=== PATIENT | female | born 1935 | race Caucasian/White ===

== ENCOUNTER 2021-06-07 11:22 | Emergency (ER) | payer OTHER ==
[~2021-06-07] VITALS: Ht 170.2 cm; Wt 60.3 kg
--- NOTE | ~2021-06-07 | EMS ---
[address] [address] EMS Patient Care Report Name: DENIS JAMA Room #: PRE RICA M.R.#: [id number] Admission: Attend Phys: Discharge: Date of : [birth year] Report #: [id number] THIS REPORT FOR: //name// Report Transmitted: 06/07/2021 11:53 EMS Care Summary [facility] MED-ACT Incident [phone] @ 06/07/2021 10:27 Incident Location [address] [place] [address] Patient DENIS JAMA Female, 85 Years 1935 Patient Address [address] [place] [address] Patient History Neuropathy, Patient Allergies Latex allergy, Patient Medications Gabapentin, Chief Complaint weakness Disposition Transported No Lights/[place] Dispatch Reason Falls Transported To [facility] Narrative Arrived to find pt lying on the floor alert and oriented. Pt stated she was turning around and had got her legs tangled and fell to the floor from a [facility] [address] [place] [address] EMS Patient Care Report Name: DENIS JAMA Room #: PRE ER M.R.#: [id number] Admission: Attend Phys: Discharge: Date of : [birth year] Report #: [id number] standing position. Pt denied any injury from the fall but stated she has been feeling very weak for the past 24-36 hours. Pt does have neuropathy but is having more difficulty than normal. Pt was lifted to the EMS cot and transported to [facility]. Upon arrival [facility] and care transferred to staff internist office based only with report. Initial Vitals @10:56P: 106,SpO2: 95,AK Suspected: false @11:06P: 105,SpO2: 96, @10:54P: 105,SpO2: 95, @11:09P: 98,R: 18,BP: 128/66,Pain: 0/10,GCS: 15,SpO2: 96,Revised Trauma: 12, @10:43P: 120,R: 18,BP: 136/79,Pain: 0/10,GCS: 15,Temp: 98.1F,Glucose: 161,SpO2: 98,Revised Trauma: 12, Impression Generalized Weakness Procedures @10:56 12-Lead ECG Timeline 10:26,Call Received 10:26,Psap Call 10:27,Dispatched 10:28,En Route 10:33,On Scene 10:37,At Patient 10:43,BP: 136/79 M,PULSE: 120,RR: 18 R,SPO2: 98 Ox,ETCO2: ,B,PAIN: 0,GCS: 15, 10:54,BP: / M,PULSE: 105,RR: R,SPO2: 95 Ox,ETCO2: ,BG: ,PAIN: ,GCS: , 10:56,12-Lead ECG, 10:56,BP: / M,PULSE: 106,RR: R,SPO2: 95 Ox,ETCO2: ,BG: ,PAIN: ,GCS: , 10:57,Depart Scene 11:06,BP: / M,PULSE: 105,RR: R,SPO2: 96 Ox,ETCO2: ,BG: ,PAIN: ,GCS: , 11:07,At Destination 11:09,BP: 128/66 M,PULSE: 98,RR: 18 R,SPO2: 96 Ox,ETCO2: ,BG: ,PAIN: 0,GCS: 15, 11:52,Call Closed Disclaimer [email or web address] Copyright 2020 [employer] This EMS Care Summary contains data elements from the applicable legal record (which may be displayed differently). It is designed to provide pertinent information for the following purposes: continuity of care, clinical quality, and state data reporting. The complete legal record is available to ED staff [address] [address] EMS Patient Care Report Name: DENIS JAMA Room #: PRE ER M.R.#: [id number] Admission: Attend Phys: Discharge: Date of : [birth year] Report #: [id number] and administrators of the receiving hospital in [employer] Patient Tracker. All data is provided "as is."
[2021-06-07 11:57] LABS: ABSOLUTE NEUTROPHILS 12.4 thou/uL (1.4-8.2); BASOPHILS 0.4 % (0.0-2.0); HEMATOCRIT 40.1 % (37.0-47.0); HEMOGLOBIN 13.3 gm/dL (12.0-15.0); MCH 31.2 pg (26.0-34.0); MCHC 33.2 g/dL (28.0-37.0); MCV 93.9 fL (80.0-100.0); PLATELET COUNT 317 thou/uL (150-400); POLYS 78.6 % (36.0-66.0); RBC 4.27 mil/uL (4.20-5.00); RDW 13.5 % (10.5-14.5); WBC 15.8 thou/uL (4.0-11.0)
[2021-06-07 12:15] LABS: CALCIUM 8.6 mg/dL (8.5-10.1); CREATININE 0.8 mg/dL (0.6-1.0); POTASSIUM 4.1 mmol/L (3.5-5.1)
[2021-06-07 12:22] VITALS: BP 134/61
[2021-06-07 12:27] LABS: ALBUMIN 3.9 g/dL (3.4-5.0); TOTAL BILIRUBIN 0.6 mg/dL (0.2-1.0)
--- NOTE | 2021-06-07 13:37 | EKG ---
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
[2021-06-07 13:50] LABS: URINE BILIRUBIN NEGATIVE (Negative); URINE BLOOD 1+ (Negative); URINE COLOR YELLOW; URINE GLUCOSE-RANDOM* NEGATIVE (Negative); URINE KETONES 1+ (Negative); URINE PROTEIN (DIPSTICK) TRACE (Negative); URINE UROBILINOGEN 0.2 E.U./dl (0.2-1.0)
[2021-06-07 13:58] LABS: URINE CLARITY SL HAZY; URINE LEUKOCYTES-REFLEX 1+ (Negative); URINE NITRITE-REFLEX POSITIVE (Negative)
[2021-06-07 14:00] LABS: BACTERIA-REFLEX >30 Many /HPF (None Seen); CASTS None Seen /LPF (None Seen); CRYSTALS None Seen /LPF (None Seen); SQUAMOUS 0-3 Few /LPF (0-3); URINE RBC 1-2 Rare /HPF (NONE SEEN); URINE WBC-REFLEX 6-15 Few /HPF (0-5)
--- NOTE | 2021-06-07 14:49 | 2DMMODE ---
[facility] [place] [address] 2 D/M-MODE ECHOCARDIOGRAM Name: DENIS JAMA Room #: REG M.R.#: [id number] Admission: 06/07/21 Attend Phys: Discharge: Date of : [birth year] Report #: [id number] THIS REPORT FOR: cc: Charity Pennington MD, Deborah M. MD Mancuso, Gerald M. MD [facility] ~ APPROVED REPORT Study performed: 06/07/2021 13:39:18 EXAM: Comprehensive 2D, Doppler, and color-flow Echocardiogram Patient Location: ER Room #: 5 Status: routine BSA: 1.70 HR: 102 bpm BP: 132/71 mmHg Rhythm: Tachycardia Other Information Study Quality: Good Indications Weakness 2D Dimensions RVDd: 29.84 mm IVSd: 6.60 (7-11mm) LVOT Diam: 20.25 (18-24mm) LVDd: 46.58 mm PWd: 7.82 (7-11mm) Ascending Ao: 30.31 (22-36mm) LVDs: 31.69 (25-40mm) Left Atrium: 33.24 (27-40mm) Aortic Root: 32.89 mm IVC: 24.00 mm Volumes Left Atrial Volume (Systole) Single Plane 4CH: 67.72 mL Single Plane 2CH: 41.48 mL LA ESV Index: 35.00 mL/m2 Aortic Valve AoV Peak Jeffy.: 1.70 m/s AO Peak Gr.: 11.63 mmHg LVOT Max P.26 mmHg LVOT Max V: 1.15 m/s VIVIANE Vmax: 2.16 cm2 [facility] [address] [place] [address] 2 D/M-MODE ECHOCARDIOGRAM Name: DENIS JAMA Room #: REG RICA DaianaAllyAbel#: [id number] Admission: 06/07/21 Attend Phys: Discharge: Date of : [birth year] Report #: [id number] Pulmonary Valve PV Peak Jeffy.: 1.18 m/s PV Peak Gr.: 5.56 mmHg Tricuspid Valve TR Peak Jeffy.: 2.64 m/s TR Peak Gr.: 27.83 mmHg PA Pressure: 38.00 mmHg Left Ventricle The left ventricle is normal size. There is normal LV segmental wall motion. There is normal left ventricular wall thickness. The left ventricular systolic function is normal. The left ventricular ejection fraction is within the normal range. LVEF is 55-60%. This study is not technically sufficient to allow evaluation of the LV diastolic function. Right Ventricle The right ventricle is normal size. The right ventricular systolic function is normal. Atria Left atrium is dilated. The right atrium size is normal. Aortic Valve The aortic valve is normal in structure. No aortic regurgitation is present. There is no aortic valvular stenosis. Mitral Valve The mitral valve is normal in structure. Mild mitral regurgitation. No evidence of mitral valve stenosis. Tricuspid Valve The tricuspid valve is normal in structure. There is mild tricuspid regurgitation. Estimated pap 39 mmHg. There is mild pulmonary hypertension. Pulmonic Valve The pulmonary valve is normal in structure. Trace pulmonic regurgitation. Great Vessels The aortic root is normal in size. IVC is dilated and collapses >50% with inspiration. Pericardium [facility] [address] [address] 2 D/M-MODE ECHOCARDIOGRAM Name: DENIS JAMA Room #: REG [facility].#: [id number] Admission: 06/07/21 Attend Phys: Discharge: Date of : [birth year] Report #: [id number] There is no pericardial effusion. <Conclusion> The left ventricle is normal size. LVEF is 55-60%. This study is not technically sufficient to allow evaluation of the LV diastolic function. The right ventricle is normal size. Left atrium is dilated. The aortic valve is normal in structure. There is no aortic valvular stenosis. Mild mitral regurgitation. There is mild tricuspid regurgitation. Estimated pap 39 mmHg. There is mild pulmonary hypertension. The aortic root is normal in size. There is no pericardial effusion. <ELECTRONICALLY SIGNED> By: Amrit Campo MD, [facility] 06/07/21 1449 1449 1449 Amrit Campo MD, FACC /INF
[2021-06-07] MEDS ORDERED: CEPHALEXIN500 MG PO (15:33)
== END 2021-06-07 16:48 | disposition home or self-care (01) ==
LOC: ER 11:22
PROVIDERS: Nurse Practitioner
DX: N39.0 Urinary tract infection, site not specified (principal); Z20.822 Contact with and (suspected) exposure to COVID-19; R53.1 Weakness; Z91.040 Latex allergy status

== ENCOUNTER → 2021-08-30 | Outpatient (CLI) | payer OTHER, MEDICARE ==
[~2021-08-30] MED LIST: CEPHALEXIN500 MG PO
== END | disposition home or self-care (01) ==
LOC: SJCVCIMAG 13:44
PROVIDERS: ATTEND Nuclear Medicine Nuclear Cardiology
DX: R94.31 Abnormal electrocardiogram [ECG] [EKG] (principal); I70.213 Atherosclerosis of native arteries of extremities with intermittent claudication, bilateral legs; S81.802A Unspecified open wound, left lower leg, initial encounter; I34.0 Nonrheumatic mitral (valve) insufficiency; I71.9 Aortic aneurysm of unspecified site, without rupture; R60.9 Edema, unspecified; I45.10 Unspecified right bundle-branch block; I70.8 Atherosclerosis of other arteries; L97.909 Non-pressure chronic ulcer of unspecified part of unspecified lower leg with unspecified severity; M79.89 Other specified soft tissue disorders; I87.2 Venous insufficiency (chronic) (peripheral); X58.XXXA Exposure to other specified factors, initial encounter; Y93.89 Activity, other specified; Y92.89 Other specified places as the place of occurrence of the external cause; Y99.8 Other external cause status; Z79.899 Other long term (current) drug therapy; Z98.890 Other specified postprocedural states; Z91.040 Latex allergy status; Z88.8 Allergy status to other drugs, medicaments and biological substances

== ENCOUNTER → 2021-09-02 | Outpatient (CLI) | payer OTHER, MEDICARE | LOC: HYPER 07:52 | PROVIDERS: ATTEND Emergency Medicine | DX: L97.822 Non-pressure chronic ulcer of other part of left lower leg with fat layer exposed (principal); L97.811 Non-pressure chronic ulcer of other part of right lower leg limited to breakdown of skin; L29.8 Other pruritus; R60.0 Localized edema; G60.3 Idiopathic progressive neuropathy; I87.2 Venous insufficiency (chronic) (peripheral); I73.89 Other specified peripheral vascular diseases; Z87.891 Personal history of nicotine dependence; Z90.49 Acquired absence of other specified parts of digestive tract ==